=== PATIENT | female | born 1950 | race Caucasian/White ===

== ENCOUNTER 2017-12-04 08:30 | Emergency (ER) | payer OTHER ==
[2017-12-04 08:39] VITALS: BP 135/77
[2017-12-04 08:56] LABS: LEUKOCYTE ESTERASE, URINE MODERATE (NEGATIVE); OCCULT BLOOD,URINE LARGE (NEGATIVE); PROTEIN,URINE >=300 mg/dL (NEGATIVE)
[2017-12-04 09:11] LABS: BILIRUBIN,URINE NEGATIVE (NEGATIVE); CLARITY,URINE BLOODY (CLEAR); ICTOTEST,URINE NEGATIVE
[2017-12-04 09:12] LABS: BACTERIA,URINE None Seen /HPF (None Seen); RBC,URINE TNTC /HPF (0-5); SQUAMOUS EPITHELIAL CELL,UR NONE SEEN (<= Few)
--- NOTE | 2017-12-04 09:30 | ED Physician Documentation ---
PD HPI FEMALE - Stated complaint Stated Complaint: FEMALE - Chief complaint Chief Complaint: UTI - History obtained from History obtained from: Patient, Family - History of Present Illness Timing - onset: Last night Timing - duration: Days (1) Timing - details: Gradual onset, Still present Associated symptoms: Dysuria, Urinary frequency. No: Back pain, Genital sore/ lesion Similar symptoms before: Diagnosis (UTI) Recently seen: Not recently seen - Additional information Additional information: 66-year-old female is visiting here from [place] and last night she developed symptoms of urinary urgency frequency and dysuria. She is now noted some blood in her urine as well. She has had blood in her urine previously with infection she took some antibiotics improved and then went through an entire workup for hematuria. She says nothing was found. Review of Systems Constitutional: denies: Fever, Chills, Fatigue, Sweats Eyes: denies: Decreased vision Respiratory: denies: Cough GI: denies: Abdominal Pain, Nausea, Vomiting : reports: Dysuria, Frequency Musculoskeletal: denies: Back pain PD PAST MEDICAL HISTORY - Past Medical History Past Medical History: No - Past Surgical History Past Surgical History: Yes HEENT: Tonsil/Adenoidectomy - Present Medications Home Medications: Ambulatory Orders Medication Instructions Recorded Confirmed Sulfamethoxazole/Trimethoprim 1 each PO BID #10 tablet 12/04/17 [Sulfamethoxazole-Tmp Ds Tablet] - Allergies Allergies/Adverse Reactions: Allergies Allergy/AdvReac Type Severity Reaction Status Date / Time Penicillins Allergy Rash Verified 12/04/17 08:39 - Social History Does the pt smoke?: No Smoking Status: Never smoker PD ED PE NORMAL - Vitals Vital signs reviewed: Yes (hypertensive ) - General General: Alert and oriented X 3, No acute distress, Well developed/nourished - HEENT HEENT: Atraumatic, PERRL - Neck Neck: Supple, no meningeal sign, No bony TTP - Respiratory Respiratory: No respiratory distress - Back Back: No CVA TTP, No spinal TTP - Derm Derm: Normal color, Warm and dry, No rash - Extremities Extremities: No deformity, No edema - Neuro Neuro: No motor deficit, No sensory deficit Eye Opening: Spontaneous Motor: Obeys Commands Verbal: Oriented GCS Score: 15 - Psych Psych: Normal mood, Normal affect Results - Vitals Vitals: Vital Signs - 24 hr 12/04/17 08:37 Temperature 36.3 C L Heart Rate 67 Respiratory 16 Rate Blood Pressure 135/77 H O2 Saturation 100 Oxygen O2 Source Room air - Labs Labs: Laboratory Tests 12/04/17 08:35 Urine Color RED/BLOODY Urine Clarity BLOODY Urine pH 7.0 Ur Specific Ramsay 1.010 Urine Protein >=300 H Urine Glucose (UA) Urine Ketones Urine Occult Blood LARGE H Urine Nitrite Urine Bilirubin NEGATIVE Urine Urobilinogen Ur Leukocyte Esterase MODERATE H Urine RBC TNTC H Urine WBC >25 H Ur Squamous Epith Cells NONE SEEN Urine Bacteria None Seen Ur Microscopic Review INDICATED Urine Culture Comments INDICATED PD MEDICAL DECISION MAKING - ED course Complexity details: reviewed results, re-evaluated patient, considered differential, d/w patient, d/w family ED course: 66-year-old female with acute onset of bladder infection symptoms has greater than 25 white blood cells per high-powered field and too numerous to count red blood cells. The urine will be cultured and we will start her on some . Departure - Departure Disposition: 01 Home, Self Care Clinical Impression: Urinary tract infection Qualifiers: Urinary tract infection type: acute cystitis Hematuria presence: with hematuria Qualified Code(s): N30.01 - Acute cystitis with hematuria Instructions: ED UTI Cystitis Female Follow-Up: Your, doctor [Other] Prescriptions: Sulfamethoxazole/Trimethoprim [Sulfamethoxazole-Tmp Ds Tablet] 1 each PO BID # 10 tablet
== END 2017-12-04 09:41 | disposition home or self-care (01) ==
LOC: ED 08:30
DX: N30.01 Acute cystitis with hematuria (principal)
CPT/HCPCS: 81001; 81003; 87086; 99283